=== PATIENT | female | born 1980 | race Two or more races ===

== ENCOUNTER → 2024-05-17 | Outpatient (CLI) | payer MEDICAID, SELFPAY ==
--- NOTE | 2024-05-17 09:53 | XR_ITS ---
Examination: Bilateral wrists 6 views TECHNIQUE: AP oblique lateral each wrist total 6 views Exam date and time: May 17, 2024 1008 hours INDICATIONS: Bilateral wrist pain beginning 2 years ago FINDINGS: Mild osteopenia No erosive arthritis Mild bilateral narrowing radiocarpal joints Mild bilateral osteoarthritis first carpometacarpal joints No avascular necrosis No fractures or wrist dislocations IMPRESSION: Mild bilateral narrowing radiocarpal joints Mild bilateral osteoarthritis first carpometacarpal joints
--- NOTE | 2024-05-17 09:53 | XR_ITS ---
Examination: Bilateral hands, 6 views. 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
== END | disposition home or self-care (01) ==
LOC: CDIM 09:36
PROVIDERS: PCP Nurse Practitioner Gerontology; Referring Provider Nurse Practitioner Gerontology; Visit Provider Nurse Practitioner Gerontology
DX: M79.642 Pain in left hand (principal); M19.041 Primary osteoarthritis, right hand; M19.032 Primary osteoarthritis, left wrist; M19.031 Primary osteoarthritis, right wrist; M25.832 Other specified joint disorders, left wrist; M25.831 Other specified joint disorders, right wrist
CPT/HCPCS: 73110; 73130

== ENCOUNTER → 2024-09-08 | Outpatient (CLI) | payer MEDICAID, SELFPAY ==
--- NOTE | 2024-09-08 15:30 | XR_ITS ---
Examination: Screening digital mammography, bilateral Computer aided detection 3-D breast Tomosynthesis, bilateral Date and time of exam: September 08, 2024 1532 hours No priors Indication: Screening Technique: Nonmagnified MLO, CC views of the breasts to been obtained, reconstructed from 3-D Tomosynthesis images. R2 computer aided detection program utilized for evaluation of suspicious masses and/or abnormal calcifications. 3-D Tomosynthesis images obtained. Findings: Scattered areas of fibroglandular density Skin lesion right breast No suspicious masses Benign calcifications Impression: BI-RADS category II: Benign Findings. Recommend 1 year follow-up mammogram.
== END | disposition home or self-care (01) ==
LOC: CDIM 15:13
PROVIDERS: Referring Provider Registered Nurse Community Health; Visit Provider Registered Nurse Community Health
DX: Z12.31 Encounter for screening mammogram for malignant neoplasm of breast (principal); R92.323 Mammographic fibroglandular density, bilateral breasts; R92.1 Mammographic calcification found on diagnostic imaging of breast
CPT/HCPCS: 77063; 77067

== ENCOUNTER 2024-11-21 18:07 | Emergency (ER) | payer MEDICAID, SELFPAY ==
[2024-11-21 18:10] VITALS: BMI 39.5
[2024-11-21 19:39] VITALS: BP 117/80; PULSE 93; RESP 16; TEMP 36.8; O2SAT 100
[2024-11-21 20:23] LABS: Collection Type, Urine Clean Catch
[2024-11-21 20:34] LABS: HCG Qualitative,Urine Negative
[2024-11-21 20:35] LABS: Bilirubin,Urine 2+ (Negative); Blood,Urine Negative (Negative); Clarity,Urine Clear (Clear/Hazy); Color,Urine Drk-Orange (Lt Yel-Yel); Glucose, Urine Negative (Negative); Ketones,Urine Negative (Negative); Leukocyte Esterase,Urine Negative (Negative); Nitrite,Urine Positive (Negative); Protein,Urine Negative (Neg - Trace); RBC,Urine 1 /hpf (0-3); Specific Gravity,Urine 1.027 (1.001-1.035); Squamous Epithelial Cell,Urine 1 /hpf (0-5); WBC,Urine 3 /hpf (0-5)
--- NOTE | 2024-11-21 20:59 | PD.EDFMALE ---
ED Female Urogenital RME/HPI General Chief complaint: Urogenital-Female Stated complaint: BURNING URINATION Time Seen by Provider: 11/21/24 19:38 Arrival date/time: 11/21/24 18:07 RME / HPI RME / HPI Narrative: 44-year-old female presents to the ED with a complaint of dysuria and frequency which has been ongoing for approximately 1 month. She has been seen by her primary care physician on 2 different occasions and prescribed 2 different courses of antibiotics but has never had a urinalysis completed. She is complaining of vaginal itching. Related Data Home Medications ?Medication ?Instructions ?Recorded ?Confirmed lisinopril 10 mg tablet 10 mg PO BID 03/17/19 08/04/19 diazepam 5 mg tablet 5 mg PO HS 08/02/19 08/04/19 desogestrel 0.15 mg-ethinyl 1 tab PO QDAY 08/04/19 08/04/19 estradiol 0.03 mg tablet (Enskyce) Previous Rx's ?Medication ?Instructions ?Recorded albuterol sulfate 90 mcg/actuation 2 puff inhalation Q6H PRN 08/04/19 aerosol inhaler (Proventil HFA) shortness of breath or wheezing #8.5 grams diphenhydramine HCl 25 mg capsule 25 mg PO Q8H PRN allergic symptoms 12/24/21 (Benadryl) #30 caps fluconazole 150 mg tablet 150 mg PO Q3D 2 doses #2 tabs 11/21/24 metronidazole 1 % topical gel 1 applic topical QDAY 7 days #60 11/21/24 (Metrogel) grams Allergies Allergy/AdvReac Type Severity Reaction Status Date / Time No Known Allergies Allergy Verified 12/24/21 09:20 Course Orders Category Date Time Status HCG Qualitative,Urine Stat Lab 11/21/24 19:53 Completed Urinalysis Stat Lab 11/21/24 19:53 Completed Urine Culture Stat Lab 11/21/24 19:53 Received Vital Signs Vital signs: Vital Signs Temperature 98.2 F 11/21/24 19:39 Pulse Rate 93 11/21/24 19:39 Respiratory Rate 16 11/21/24 19:39 Blood Pressure 117/80 11/21/24 19:39 Pulse Oximetry (%) 100 11/21/24 19:39 Oxygen Delivery Method Room Air 11/21/24 19:39 Discharge Plan Plan Patient Disposition: HOME (Self Care) Discharge Disposition comment: Stable Prescriptions/Referrals Prescriptions/Med Rec: New fluconazole 150 mg tablet 150 mg PO Q3D Qty: 2 0RF Rx Instructions: may repeat second dose 72 hrs after first dose if symptoms persist metronidazole [Metrogel] 1 % gel 1 applic topical QDAY 7 Days Qty: 60 0RF No Action lisinopril 10 mg Tablet 10 mg PO BID diazepam 5 mg tablet 5 mg PO HS Patient Comments: TAKE ONE TABLET BY MOUTH EVERY DAY AT BED TIME albuterol sulfate [Proventil HFA] 90 mcg/actuation HFA aerosol inhaler 2 puff INH Q6H PRN (Reason: shortness of breath or wheezing) Qty: 8.5 0RF desogestrel-ethinyl estradiol [Enskyce] 0.15-0.03 mg tablet 1 tab PO QDAY Patient Comments: TOME VENESSA TABLETA TODOS LOS D? diphenhydramine HCl [Benadryl] 25 mg capsule 25 mg PO Q8H PRN (Reason: allergic symptoms) Qty: 30 0RF Referrals: Tabitha Boland FNP [Primary Care Provider] - In 1 week Problem List Clinical Impression: Vaginitis Patient/Caregiver Discharge Instructions Education Materials: Vaginal Infection Additional Instructions: There is no sign of a urinary tract infection at this time. Use the medications for vaginitis as prescribed. Follow-up with your primary care physician in 24 to 48 hours. Return to the ED for any new or worsening symptoms. Print Language: Estonian Stand Alone Forms: Gwendolyn Award Info., Patient Portal Info Letter LEATHA/BATSHEVA Supervising Physician LEATHA/BATSHEVA Supervising Physician: Dr. Coleman
[2024-11-21 21:25] VITALS: RESP 18
== END 2024-11-21 21:26 | disposition home or self-care (01) ==
PROVIDERS: Physician Assistant; Emergency Provider Emergency Medicine; PCP Registered Nurse Community Health
DX: N76.0 Acute vaginitis (principal)
CPT/HCPCS: 81001; 81025; 87086; 99283

== ENCOUNTER → 2025-03-16 | Outpatient (CLI) | payer MEDICAID, SELFPAY ==
--- NOTE | 2025-03-16 | XR_ITS ---
Examination: Ultrasound soft tissue neck Technique: Grayscale sonographic images soft tissue neck Date and time: March 16, 2020 0515 hrs. Indications: Palpable lump in the left neck beginning 2 months ago. Findings: Lymph node versus soft tissue mass at the palpable left 21 x 6 x 19 mm Impression: Findings most consistent with enlarged pathologic lymph node at the area concern left neck, recommend CT soft tissue neck post intravenous contrast follow-up
== END | disposition home or self-care (01) ==
PROVIDERS: PCP Registered Nurse Community Health; Referring Provider Registered Nurse Community Health; Visit Provider Registered Nurse Community Health
DX: R22.1 Localized swelling, mass and lump, neck (principal)
CPT/HCPCS: 76536

== ENCOUNTER → 2025-04-12 | Outpatient (CLI) | payer MEDICAID, SELFPAY ==
[2025-04-11 15:29] LABS: HCG Qualitative,Urine Negative
--- NOTE | 2025-04-12 07:30 | XR_ITS ---
Examination: CT soft tissue neck, with intravenous contrast. 2-D coronal reconstructions. 2-D sagittal reconstructions. Date and time: April 12, 2025, 0759 hours INDICATIONS: Neck pain 2 years, left-sided CTDI: vol (mGy): 16.6 DLP: (mGycm): 550 Technique: 1.25 mm axial sections of the neck of the obtained. Coronal and sagittal reconstructions have been obtained. Intravenous contrast administered 50 cc Isovue 370. Low dose protocols were performed. One or more of the following dose reduction techniques were used; automated exposure control, adjustment of the mA and/or KV according to patient size, use of iterative reconstruction technique. Findings: Adequate alignment cervical vertebral bodies No cervical fracture Intact odontoid No cervical disc narrowing Symmetrical parotid gland and submandibular glands No enhancing oropharyngeal or nasopharyngeal mass The larynx appears normal Carotid triangle lymph nodes, larger on the left, left carotid triangle lymph nodes measuring 12 mm, 10 mm, 9 mm, 8 mm Posterior left cervical lymph nodes, the largest 7 mm Normal epiglottis IMPRESSION: Significant left carotid triangle lymphadenopathy, clinical correlation advised
== END | disposition home or self-care (01) ==
LOC: SCAT 07:27
PROVIDERS: PCP Registered Nurse Community Health; Referring Provider Registered Nurse Community Health; Visit Provider Registered Nurse Community Health
DX: R59.0 Localized enlarged lymph nodes (principal); Z32.00 Encounter for pregnancy test, result unknown
CPT/HCPCS: 70491; 81025; A4649; Q9967